=== PATIENT | female | born 1975 | race Caucasian/White ===

== ENCOUNTER 2018-01-20 02:19 | Inpatient (IN) | payer MEDICAID, OTHER ==
[~2018-01-20] VITALS: Ht 162.6 cm; Wt 58.7 kg
[2018-01-20] MEDS ORDERED: ONDANSETRON ODT 4 MG PO ONE (03:00)
[2018-01-20] MEDS ORDERED: HYDROmorphone 1 MG/ML, 1ML IVPush PRN (03:00)
[2018-01-20] MEDS ORDERED: PROPOFOL 10 MG/ML, 20ML IVPush ONE (03:00)
[2018-01-20] MEDS ORDERED: DIPH,PERTUSS(ACELL),TET VAC/PF 0.5 ML IM-VACC ONE ×2 (03:00→04:33)
[2018-01-20] MEDS ORDERED: CLINDAMYCIN PMX 600MG/50ML 50 ML IVPB ONE (03:00)
[2018-01-20] MEDS ORDERED: SODIUM CHLORIDE FLUSH 10ML SYR IVF ONE (03:00)
[2018-01-20] MEDS ORDERED: HYDROmorphone 2 MG/ML, 1ML IVPush PRN (03:00)
[2018-01-20] MEDS ORDERED: SODIUM CHLORIDE 0.9% 1,000ML IVBOLUS ONE (03:00)
[2018-01-20 03:11] LABS: BASOPHILS # (AUTO) 0.03 x10^3/uL (0-0.1); BASOPHILS % (AUTO) 0 % (0-1); EOSINOPHILS # (AUTO) 0.17 x10^3/uL (0-0.4); EOSINOPHILS % (AUTO) 1 % (1-7); LYMPHOCYTES # (AUTO) 1.42 x10^3/uL (1-3.4); LYMPHOCYTES % (AUTO) 11 % (22-44); MD NO; MEAN CORPUSCULAR HEMOGLOBIN 26.1 pg (27.0-34.8); MEAN CORPUSCULAR HGB CONC 32.3 g/dL (32.4-35.8); MEAN CORPUSCULAR VOLUME 80.8 fL (80-100); MEAN PLATELET VOLUME 7.7 fL (7.4-10.4); MONOCYTES % (AUTO) 10 % (2-9); NEUTROPHILS # (AUTO) 9.85 x10^3/uL (1.8-6.8); NEUTROPHILS % (AUTO) 78 % (42-75); PLATELET COUNT 467 x10^3/uL (130-400); RED CELL DISTRIBUTION WIDTH 16.3 % (9.6-15.2)
[2018-01-20 03:23] LABS: ALBUMIN 2.9 g/dL (3.4-5.0); ANION GAP 7 mmol/L (5-15); CALCIUM 8.6 mg/dL (8.5-10.1); CHLORIDE 103 mmol/L (98-107); CREATININE 0.89 mg/dL (0.55-1.02)
[2018-01-20] MEDS ORDERED: ONDANSETRON ODT 4 MG ONE (03:26)
[2018-01-20] MEDS ORDERED: CLINDAMYCIN PMX 600MG/50ML 50 ML ONE (03:26)
[2018-01-20] MEDS ORDERED: PROPOFOL 10 MG/ML, 20ML ONE ×2 (03:27→03:41)
[2018-01-20] MEDS ORDERED: HYDROmorphone 2 MG/ML, 1ML ONE (04:33)
[2018-01-20] MEDS: SODIUM CHLORIDE 0.9% 1,000 ML IV SCH ×2 (04:49→14:38)
[2018-01-20 05:00] VITALS: BP 128/83
[2018-01-20] MEDS ORDERED: TEMAZEPAM 15 MG CAPSULE PO PRN (05:00)
[2018-01-20] MEDS ORDERED: ONDANSETRON ODT 4 MG PO PRN (05:00)
[2018-01-20] MEDS ORDERED: ONDANSETRON 2MG/ML, 2ML IVPush PRN (05:00)
[2018-01-20] MEDS ORDERED: POLYETHYLENE GLYCOL 17 GM PACKET PO PRN (05:00)
[2018-01-20] MEDS: ENOXAPARIN 40 MG/0.4 ML SQ SCH (05:43)
[2018-01-20] MEDS ORDERED: PNEUMOCOCCAL 23 VACCINE IM-VACC ONE (06:00)
[2018-01-20 08:04] VITALS: BP 126/83
[2018-01-20] MEDS: CLINDAMYCIN PMX 600MG/50ML 50 ML IV SCH ×4 (09:30→22:20)
[2018-01-20] MEDS: ACETAMINOPHEN 325 MG TABLET PO PRN ×2 (09:30→19:51)
[2018-01-20] MEDS: OXYcodone IR 5MG TABLET PO PRN ×2 (09:30→19:51)
[2018-01-20] MEDS ORDERED: HYDROmorphone 1 MG/ML, 1ML ONE (11:54)
[2018-01-20] MEDS ORDERED: HYDROmorphone 1 MG/ML, 1ML IV ONE (12:00)
[2018-01-20] MEDS ORDERED: NICOTINE 21 MG/24 HR PATCH.TD24 TD PRN (12:00)
[2018-01-20 15:00] VITALS: BP 116/75
[2018-01-20 20:00] VITALS: BP 129/76
[2018-01-21 01:13] VITALS: BP 119/72
[2018-01-21] MEDS: CLINDAMYCIN PMX 600MG/50ML 50 ML IV SCH ×4 (03:39→20:28)
[2018-01-21 05:22] LABS: BASOPHILS # (AUTO) 0.04 x10^3/uL (0-0.1); BASOPHILS % (AUTO) 1 % (0-1); EOSINOPHILS % (AUTO) 3 % (1-7); LYMPHOCYTES # (AUTO) 1.96 x10^3/uL (1-3.4); LYMPHOCYTES % (AUTO) 26 % (22-44); MD NO; MEAN CORPUSCULAR HGB CONC 32.2 g/dL (32.4-35.8); MEAN CORPUSCULAR VOLUME 80.8 fL (80-100); MEAN PLATELET VOLUME 7.8 fL (7.4-10.4); MONOCYTES # (AUTO) 0.86 x10^3/uL (0.2-0.8); MONOCYTES % (AUTO) 11 % (2-9); NEUTROPHILS # (AUTO) 4.57 x10^3/uL (1.8-6.8); NEUTROPHILS % (AUTO) 60 % (42-75); PLATELET COUNT 425 x10^3/uL (130-400); RED BLOOD COUNT 3.91 x10^6/uL (3.82-5.3); RED CELL DISTRIBUTION WIDTH 16.3 % (9.6-15.2)
[2018-01-21] MEDS: ENOXAPARIN 40 MG/0.4 ML SQ SCH (05:25)
[2018-01-21 05:26] LABS: ANION GAP 6 mmol/L (5-15); CALCIUM 8.5 mg/dL (8.5-10.1); CHLORIDE 105 mmol/L (98-107)
[2018-01-21 05:27] LABS: CREATININE 0.82 mg/dL (0.55-1.02)
[2018-01-21] MEDS: OXYcodone IR 5MG TABLET PO PRN ×3 (05:30→20:40)
[2018-01-21] MEDS: SODIUM CHLORIDE 0.9% 1,000 ML IV SCH ×2 (05:30→15:22)
[2018-01-21 07:21] VITALS: BP 111/76
[2018-01-21 13:01] VITALS: BP 113/64
[2018-01-21 19:57] VITALS: BP 135/81
[2018-01-22] MEDS: SODIUM CHLORIDE 0.9% 1,000 ML IV SCH (01:00)
[2018-01-22 01:09] VITALS: BP 127/80
[2018-01-22] MEDS: CLINDAMYCIN PMX 600MG/50ML 50 ML IV SCH ×3 (03:11→14:25)
[2018-01-22] MEDS: ENOXAPARIN 40 MG/0.4 ML SQ SCH (05:06)
[2018-01-22 07:38] VITALS: BP 129/83
[2018-01-22] MEDS: OXYcodone IR 5MG TABLET PO PRN (08:25)
[2018-01-22 14:47] VITALS: BP 118/80
[2018-01-22] MEDS ORDERED: CLIN300C8 PO (15:38)
== END 2018-01-22 17:40 | disposition home or self-care (01) | DRG 853 ==
LOC: ED 04:14 → SUATTDRO 04:38 → EDIP 04:41 → 4NOR 04:52
PROVIDERS: ADMIT Hospitalist; ATTEND Hospitalist
PROC: 0J990ZZ Drainage of Buttock Subcutaneous Tissue and Fascia, Open Approach (ICD-10-PCS; principal; 2018-01-20)
DX: A41.9 Sepsis, unspecified organism (principal); E43 Unspecified severe protein-calorie malnutrition; L02.31 Cutaneous abscess of buttock; L02.415 Cutaneous abscess of right lower limb; L03.115 Cellulitis of right lower limb; L03.317 Cellulitis of buttock; F17.210 Nicotine dependence, cigarettes, uncomplicated; Z23 Encounter for immunization; Z68.22 Body mass index [BMI] 22.0-22.9, adult
CPT/HCPCS: 10061; 36415; 80048; 82040; 83605; 83735; 84100; 85025; 87040; 90715; 90732; 96365; 99152; J1170; J1650; Q0162; J7030

== ENCOUNTER 2021-04-24 11:14 | Emergency (ER) | payer MEDICAID ==
[~2021-04-24] VITALS: Ht 162.6 cm; Wt 56.0 kg
[~2021-04-24 11:14] MED LIST: CLIN300C9 PO
[2021-04-24 11:22] VITALS: BP 105/72
--- NOTE | 2021-04-24 11:26 | NUR ---
PT BIB [facility], DOG BITE (PITBULL) TO LT THUMB. PT STATES N/T TO THUMB, STATES DECREASED ABILITY TO MOVE THUMB. THUMB IS PINK/WARM/DRY.
[2021-04-24] MEDS ORDERED: LIDOCAINE-MPF 1%, 5ML INFIL ONE (12:30)
[2021-04-24] MEDS ORDERED: DIPH,PERTUSS(ACELL),TET VAC/PF 0.5 ML IM-VACC ONE ×2 (12:30→12:39)
[2021-04-24] MEDS ORDERED: LIDOCAINE-MPF 1%, 2ML ONE (12:39)
[2021-04-24] MEDS ORDERED: BACITRACIN ZINC OINT 500U/GM, 0.9 GM ONE (15:47)
== END 2021-04-24 16:10 | disposition home or self-care (01) ==
LOC: ED 16:04
DX: S61.012A Laceration without foreign body of left thumb without damage to nail, initial encounter (principal); F17.210 Nicotine dependence, cigarettes, uncomplicated; W54.0XXA Bitten by dog, initial encounter; Y93.89 Activity, other specified; Y92.89 Other specified places as the place of occurrence of the external cause; Y99.8 Other external cause status
CPT/HCPCS: 12001; 90471; 90715; 99283; 99406